=== PATIENT | male | born 1955 | race Caucasian/White ===

== ENCOUNTER 2019-03-29 22:32 | Emergency (ER) | payer OTHER ==
[~2019-03-29] VITALS: Ht 175.3 cm; Wt 94.1 kg
[2019-03-29 22:45] VITALS: BP 148/86
--- NOTE | 2019-03-29 22:46 | NUR ---
LIZBETH MILAN. OKAY TO WAIT IN LOBBY FOR MAIN ED BED. VSS.
--- NOTE | 2019-03-30 01:30 | NUR ---
63 YO MALE BIB SELF FOR C/O COUGH X 2 DAYS. LUNGS CLEAR EVEN UNLABORED BILATERALLY. DENIES FEVER CHILLS @ THIS TIME. DENIES CP/SOB. ABD SOFT NON DISTENDED. GURNEY LOCKED IN LOWEST POSITION. WILL UPDATE ERMD. HX: DENIES AX: DENIES MED: DENIES
--- NOTE | 2019-03-30 01:30 | NUR ---
AMBULATED TO ER BED 9
[2019-03-30 02:05] VITALS: BP 148/86
== END 2019-03-30 02:23 | disposition home or self-care (01) ==
LOC: MED 22:32
DX: R05 Cough (principal); R06.02 Shortness of breath
CPT/HCPCS: 71046; 99283